=== PATIENT | female | born 1940 | race Caucasian/White ===

== ENCOUNTER 2017-04-13 14:50 | Inpatient (IN) | payer SELFPAY ==
[~2017-04-13] VITALS: Ht 154.9 cm; Wt 75.3 kg
[~2017-04-13 14:50] MED LIST: AMLO10TA55 PO; ASPI-556 PO; CLOP75TA14 PO; GLIP1TAB4 PO; TRAM50TA4 PO
[2017-04-13] MEDS ORDERED: METF850T2 PO (15:05)
[2017-04-13 15:07] LABS: GLUCOSE,POINT OF CARE 348 MG/DL (70-110)
[2017-04-13] MEDS ORDERED: TraMADol HCL 50 MG TABLET PO ONE (20:30)
[2017-04-13] MEDS ORDERED: SODIUM CHLORIDE 0.9% 1,000 ML IV ONE (20:30)
[2017-04-13 20:40] LABS: GLUCOSE,POINT OF CARE 273 MG/DL (70-110)
[2017-04-13 20:50] LABS: BASOPHILS % (AUTO) 0.7 % (0.0-2.0); EOSINOPHILS % (AUTO) 1.7 % (1.0-6.0); HEMATOCRIT 38.1 % (36-46); LYMPHOCYTES # (AUTO) 2.4 K/uL (1.0-4.8); MEAN CORPUSCULAR HEMOGLOBIN 30.2 pg (26.0-34.0); MEAN CORPUSCULAR HGB CONC 34.1 G/dL (31.0-37.0); MEAN CORPUSCULAR VOLUME 89 fL (80-100); MONOCYTES # (AUTO) 0.6 K/uL (0.1-1.0); NEUTROPHILS # (AUTO) 4.2 K/uL (1.8-7.7); NEUTROPHILS % (AUTO) 57.6 % (40.0-70.0); PLATELET COUNT (AUTO) 249 K/uL (150-450); RED CELL DISTRIBUTION WIDTH 13.9 % (11.5-14.5); WHITE BLOOD COUNT (AUTO) 7.4 K/uL (4.5-11.0)
[2017-04-13 21:10] LABS: CALCIUM, TOTAL 8.7 mg/dL (8.8-10.5); CREATININE 1.06 mg/dL (0.60-1.30); POTASSIUM 3.9 mmol/L (3.5-5.1)
[2017-04-13 21:17] LABS: ALBUMIN 3.3 g/dL (3.4-5.0); BILIRUBIN,TOTAL 0.2 mg/dL (0.1-1.0); TOTAL PROTEIN, SERUM 7.6 g/dL (6.4-8.2)
[2017-04-13] MEDS ORDERED: HEPARIN SODIUM 25000 UNITS/D5W 250 ML IV PRN (22:02)
[2017-04-13] MEDS ORDERED: INSULIN ASPART 100 UNITS/ML SQ PRN (22:15)
[2017-04-13] MEDS ORDERED: ACETAMINOPHEN 325 MG TABLET PO PRN ×2 (22:15)
[2017-04-13] MEDS ORDERED: DEXTROSE 50%-WATER 25 GM/50 ML SYRINGE IVP PRN ×2 (22:15)
[2017-04-13] MEDS ORDERED: 0.9% SODIUM CHLORIDE 10 ML SYRINGE IVP PRN (22:15)
[2017-04-13] MEDS ORDERED: HEPARIN SODIUM,PORCINE 5,000 UNITS/ML VIAL IVP ONE (22:15)
[2017-04-13] MEDS ORDERED: OxyCODONE HCL/ACETAMINOPHEN 5-325 MG TABLET PO PRN (22:15)
[2017-04-13] MEDS ORDERED: ONDANSETRON HCL 4 MG/2 ML VIAL IVP PRN (22:15)
[2017-04-13] MEDS ORDERED: MAGNESIUM HYDROXIDE SUSPENSION 30 ML UDCUP PO PRN (22:15)
[2017-04-13] MEDS ORDERED: HEPARIN SODIUM,PORCINE 5,000 UNITS/ML VIAL IVP PRN ×2 (22:15)
[2017-04-13 23:24] VITALS: BP 147/73
[2017-04-13] MEDS: APIXABAN 5 MG TABLET PO SCH (23:34)
[2017-04-14] MEDS ORDERED: INFLUENZA VIRUS VACCINE QVS 2017-18 (3YR+)/PF 60 MCG/0.5 ML SYRINGE IM ONE (00:45)
[2017-04-14] MEDS ORDERED: PNEUMOCOCCAL VACCINE POLYVALENT 0.5 ML VIAL [PPSV23] IM ONE (00:45)
[2017-04-14 04:45] VITALS: BP 130/67
[2017-04-14 06:26] LABS: BASOPHILS % (AUTO) 0.7 % (0.0-2.0); HEMATOCRIT 36.9 % (36-46); HEMOGLOBIN 12.5 g/dL (12.0-16.0); LYMPHOCYTES # (AUTO) 2.8 K/uL (1.0-4.8); LYMPHOCYTES % (AUTO) 44.5 % (22.0-44.0); MEAN CORPUSCULAR HGB CONC 33.8 G/dL (31.0-37.0); MEAN CORPUSCULAR VOLUME 89 fL (80-100); MONOCYTES # (AUTO) 0.5 K/uL (0.1-1.0); MONOCYTES % (AUTO) 7.6 % (2.0-9.0); NEUTROPHILS # (AUTO) 2.8 K/uL (1.8-7.7); NEUTROPHILS % (AUTO) 45.2 % (40.0-70.0); PLATELET COUNT (AUTO) 235 K/uL (150-450); RED BLOOD CELL COUNT(AUTO) 4.16 MIL/uL (4.00-5.20); RED CELL DISTRIBUTION WIDTH 13.9 % (11.5-14.5); WHITE BLOOD COUNT (AUTO) 6.2 K/uL (4.5-11.0)
[2017-04-14] MEDS: INSULIN ASPART 100 UNITS/ML SQ PRN ×4 (06:31→20:08)
[2017-04-14 08:22] VITALS: BP 131/70
[2017-04-14] MEDS: APIXABAN 5 MG TABLET PO SCH ×2 (08:27→20:01)
[2017-04-14] MEDS: MetFORMIN HCL 850 MG TABLET PO SCH ×2 (08:28→18:01)
[2017-04-14] MEDS: DOCUSATE SODIUM 100 MG CAPSULE PO SCH ×2 (08:28→20:01)
[2017-04-14] MEDS: PANTOPRAZOLE SODIUM 40 MG DR TABLET PO SCH (08:28)
[2017-04-14] MEDS: LISINOPRIL 10 MG TABLET PO SCH (08:28)
[2017-04-14 11:45] VITALS: BP 143/61
[2017-04-14 11:47] LABS: GLUCOSE COMMENT 1 Received Meds; GLUCOSE,POINT OF CARE 236 MG/DL (70-110)
[2017-04-14 12:50] LABS: GLUCOSE,POINT OF CARE 188 MG/DL (70-110)
[2017-04-14 16:23] VITALS: BP 138/70
[2017-04-14 19:38] VITALS: BP 130/70
[2017-04-14 23:35] VITALS: BP 135/63
[2017-04-15 04:28] VITALS: BP 150/76
[2017-04-15 04:38] LABS: GLUCOSE,POINT OF CARE 282 MG/DL (70-110)
[2017-04-15] MEDS: INSULIN ASPART 100 UNITS/ML SQ PRN ×2 (06:04→12:40)
[2017-04-15 07:24] VITALS: BP 144/74
[2017-04-15] MEDS: DOCUSATE SODIUM 100 MG CAPSULE PO SCH (09:16)
[2017-04-15] MEDS: APIXABAN 5 MG TABLET PO SCH (09:16)
[2017-04-15] MEDS: PANTOPRAZOLE SODIUM 40 MG DR TABLET PO SCH (09:16)
[2017-04-15] MEDS: MetFORMIN HCL 850 MG TABLET PO SCH (09:16)
[2017-04-15] MEDS: LISINOPRIL 10 MG TABLET PO SCH (09:16)
[2017-04-15 11:10] VITALS: BP 143/70
[2017-04-15 11:21] LABS: GLUCOSE,POINT OF CARE 249 MG/DL (70-110)
[2017-04-15 15:17] LABS: GLUCOSE COMMENT 1 Received Meds; GLUCOSE,POINT OF CARE 277 MG/DL (70-110)
[2017-04-15 15:59] VITALS: BP 147/69
[2017-04-15] MEDS ORDERED: APIX5TAB PO ×2 (17:39→17:43)
[2017-04-15] MEDS ORDERED: METF10002 PO ×2 (17:40→17:44)
[2017-04-15] MEDS ORDERED: MetFORMIN HCL 500 MG TABLET PO SCH (18:00)
[2017-04-15 18:19] LABS: GLUCOSE,POINT OF CARE 262 MG/DL (70-110)
[2017-04-20] MEDS ORDERED: APIXABAN 5 MG TABLET PO SCH (21:00)
== END 2017-04-15 18:05 | disposition home or self-care (01) | DRG 638 ==
LOC: EMS 14:52 → 6N 21:49
PROVIDERS: ADMIT Internal Medicine; ATTEND Internal Medicine
DX: E11.65 Type 2 diabetes mellitus with hyperglycemia (principal); I82.431 Acute embolism and thrombosis of right popliteal vein; I10 Essential (primary) hypertension; B35.1 Tinea unguium; Z79.4 Long term (current) use of insulin; Z79.84 Long term (current) use of oral hypoglycemic drugs; Z79.02 Long term (current) use of antithrombotics/antiplatelets; Z79.82 Long term (current) use of aspirin; Z79.899 Other long term (current) drug therapy; Z87.891 Personal history of nicotine dependence
CPT/HCPCS: 82962; 83036; 86140; 87040; 90471; 93971; 96360; 99285; J7030